=== PATIENT | male | born 1970 | race American Indian/Alaskan Native ===

== ENCOUNTER 2016-10-12 23:01 | Emergency (ER) | payer SELFPAY ==
[2016-10-13] MEDS ORDERED: BOOSTRIX IM ONE (01:57)
[2016-10-13] MEDS ORDERED: MOTRIN PO ONE (01:57)
--- NOTE | 2016-10-13 02:22 | Emergency Department Report ---
ED General Adult HPI - General Chief complaint: Wound/Laceration Stated complaint: LACERATION TO LIP/LOOSE TOOTH Time Seen by Provider: 10/13/16 01:44 Source: patient Mode of arrival: Ambulatory Limitations: No Limitations - History of Present Illness Initial comments: Is a 46-year-old male presents to the ED complaining of the lip pain and tooth pain times today. Patient states he had been hit by perfume bottle on the lip earlier today. Patient states lip was bleeding for a bit but now resolved. Patient also stated the lip is swollen and tender to touch. Patient states he sustained a small cut to the upper left lip and chipped tooth. Patient states he does not know his last tetanus immunization is up-to-date He denies no other symptoms. - Related Data Previous Rx's Medication Instructions Recorded Last Taken Type Amoxicillin/K Clav Tab [Augmentin 1 tab PO Q12HR #10 tab 10/13/16 Unknown Rx 875 mg] Ibuprofen [Motrin 800 MG tab] 800 mg PO ONCE #30 tablet 10/13/16 Unknown Rx Allergies Allergy/AdvReac Type Severity Reaction Status Date / Time No Known Allergies Allergy Verified 10/13/16 02:11 ED Review of Systems ROS: Stated complaint: LACERATION TO LIP/LOOSE TOOTH Other details as noted in HPI Constitutional: denies: chills, fever Eyes: denies: eye pain, eye discharge, vision change ENT: denies: ear pain, throat pain Respiratory: denies: cough, shortness of breath, wheezing Cardiovascular: denies: chest pain, palpitations Endocrine: no symptoms reported Gastrointestinal: denies: abdominal pain, nausea, diarrhea Genitourinary: denies: urgency, dysuria Musculoskeletal: denies: back pain, joint swelling, arthralgia Skin: denies: rash, lesions Neurological: denies: headache, weakness, paresthesias Psychiatric: denies: anxiety, depression Hematological/Lymphatic: denies: easy bleeding, easy bruising ED Past Medical Hx - Past Medical History Hx Hypertension: Yes - Surgical History Past Surgical History?: No - Social History Smoking Status: Never Smoker Substance Use Type: None - Medications Home Medications: Home Medications Medication Instructions Recorded Confirmed Last Taken Type Amoxicillin/K Clav Tab [Augmentin 1 tab PO Q12HR #10 tab 10/13/16 Unknown Rx 875 mg] Ibuprofen [Motrin 800 MG tab] 800 mg PO ONCE #30 tablet 10/13/16 Unknown Rx ED Physical Exam - General Limitations: No Limitations General appearance: alert, in no apparent distress - Head Head exam: Present: atraumatic, normocephalic - Eye Eye exam: Present: normal appearance - ENT ENT exam: Present: mucous membranes moist, other (1cm superficial lip lac/ abrasion, non bleeding) - Expanded ENT Exam Expanded 1 - Other (chipped) - Neck Neck exam: Present: normal inspection, full ROM. Absent: lymphadenopathy, thyromegaly - Respiratory Respiratory exam: Present: normal lung sounds bilaterally. Absent: respiratory distress, wheezes, rhonchi - Cardiovascular Cardiovascular Exam: Present: regular rate, normal rhythm. Absent: systolic murmur, diastolic murmur, rubs, gallop - GI/Abdominal GI/Abdominal exam: Present: soft, normal bowel sounds - Rectal Rectal exam: Present: deferred - Extremities Exam Extremities exam: Present: normal inspection - Back Exam Back exam: Present: normal inspection - Neurological Exam Neurological exam: Present: alert, oriented X3 - Psychiatric Psychiatric exam: Present: normal affect, normal mood - Skin Skin exam: Present: warm, dry, intact, normal color. Absent: rash ED Course Vital Signs 10/13/16 10/13/16 00:39 02:49 Temperature 97.8 F Pulse Rate 72 63 Respiratory 18 18 Rate Blood Pressure 153/105 Blood Pressure 153/103 159/108 [Right] O2 Sat by Pulse 97 100 Oximetry ED Medical Decision Making - Medical Decision Making 46-year-old male presents to the ED with lip abrasion and chipped tooth ED course: The abrasions cleaned and were Steri-Stripped. Discussed acute one daily patient. Discussed follow-up is warranted with primary care physician. Vital signs are normal patient is no acute distress. Critical care attestation.: If time is entered above; I have spent that time in minutes in the direct care of this critically ill patient, excluding procedure time. ED Disposition Clinical Impression: Abrasion of lip, initial encounter, Broken or cracked tooth, nontraumatic Disposition: DC-01 TO HOME OR SELFCARE Is pt being admited?: No Does the pt Need Aspirin: No Condition: Stable Instructions: Abrasion (ED), Toothache (ED) Additional Instructions: Clean daily apply triple antibiotic or Neosporin to lip Follow-up with primary care physician has referred Prescriptions: Amoxicillin/K Clav Tab [Augmentin 875 mg] 1 tab PO Q12HR #10 tab Ibuprofen [Motrin 800 MG tab] 800 mg PO ONCE #30 tablet Referrals: NICKI JONES MD [Primary Care Provider] - 3-5 Days KAREN ANTHONY MD [Referring] - 3-5 Days [facility] [Outside] - 3-[address] [facility] [Outside] - 3-5 Days [facility] [Outside] - 3-5 Days Forms: Accompanied Note, Work/School Release Form(ED) Time of Disposition: 02:23
[2016-10-13 02:50] VITALS: BP 159/108
== END 2016-10-13 02:50 | disposition home or self-care (01) ==
LOC: ED 23:01
DX: S00.511A Abrasion of lip, initial encounter (principal); K03.81 Cracked tooth; I10 Essential (primary) hypertension; W22.8XXA Striking against or struck by other objects, initial encounter; Y93.9 Activity, unspecified; Y99.9 Unspecified external cause status; Y92.89 Other specified places as the place of occurrence of the external cause
CPT/HCPCS: 90471; 90715

== ENCOUNTER 2017-06-07 02:21 | Emergency (ER) | payer OTHER ==
--- NOTE | 2017-06-07 02:33 | Emergency Department Report ---
ED CPR HPI - General Stated Complaint: CARDIAC ARREST Time Seen by Provider: 06/07/17 02:21 Source: family Mode of arrival: Stretcher Limitations: Altered Mental Status, Physical Limitation - History of Present Illness Initial Comments: 47 year old male from home with a hx of obesity and hypertension, chf, sleep apnea, presents status post cardiopulmonary arrest. At 1:30 AM patient was witnessed clutching his chest and then fell to the ground becoming unresponsive. Upon BLS arrival patient was in fine V. fib and received 3 shocks. Upon ALS arrival at 1:45am patient was in asystole. Patient received total of 3 doses of epinephrine, one dose of sodium bicarbonate, Narcan 2mg, and Accu-Chek was in the 80s. Patient was in asystole upon arrival. Patient was not intubated in a field and presented with bag valve mask ventilations and oral airway in place. Patient presents with apnea and fixed and dilated pupils. Upon my arrival she states the patient was snoring and was not sleeping with a CPAP machine at the time and attempted to get up and fell back down when she noticed he was in distress. - Related Data Previous Rx's Medication Instructions Recorded Last Taken Type Amoxicillin/K Clav Tab [Augmentin 1 tab PO Q12HR #10 tab 10/13/16 Unknown Rx 875 mg] Ibuprofen [Motrin 800 MG tab] 800 mg PO ONCE #30 tablet 10/13/16 Unknown Rx Allergies Allergy/AdvReac Type Severity Reaction Status Date / Time No Known Allergies Allergy Verified 10/13/16 02:11 ED Review of Systems ROS: Stated complaint: CARDIAC ARREST Other details as noted in HPI Comment: Unobtainable due to pts medical conditions ED Past Medical Hx - Past Medical History Hx Hypertension: Yes - Social History Smoking Status: Never Smoker Substance Use Type: None - Medications Home Medications: Home Medications Medication Instructions Recorded Confirmed Last Taken Type Amoxicillin/K Clav Tab [Augmentin 1 tab PO Q12HR #10 tab 10/13/16 Unknown Rx 875 mg] Ibuprofen [Motrin 800 MG tab] 800 mg PO ONCE #30 tablet 10/13/16 Unknown Rx ED Physical Exam - Other Other exam information: General: unresponsive Head exam: Atraumatic, normocephalic Eyes exam: Ptosis, conjunctivae erythema bilaterally, pupils fixed and dilated ENT: Oral airway vomitus at the nostrils Neck exam: Normal inspection Respiratory exam: Apneic Cardiovascular: Pulseless Abdomen: Soft, obese Extremity: No deformity no spontaneous movement Back: Normal Inspection Neurologic: GCS = 3 Skin: Warm, dry, intact ED Medical Decision Making - Medical Decision Making At time of arrival patient has been in asystole for approximately 35 minutes and cardiopulmonary arrest for 50 minutes. Pupils are fixed and dilated upon arrival. The response to initial shocks prior to arrival. Time of 02:19 AM in the ED informed the patient's - Differential Diagnosis [place], arrhythmia, PE Critical Care Time: No Critical care attestation.: If time is entered above; I have spent that time in minutes in the direct care of this critically ill patient, excluding procedure time. ED Disposition Clinical Impression: Cardiopulmonary arrest Disposition: DC-20 Is pt being admited?: No Condition: Serious Time of Disposition: 02:37
== END 2017-06-07 03:31 ==
LOC: ED 02:21
DX: I46.9 Cardiac arrest, cause unspecified (principal); I10 Essential (primary) hypertension; G47.30 Sleep apnea, unspecified